=== PATIENT | female | born 1985 | race Caucasian/White ===

== ENCOUNTER 2020-06-06 18:42 | Emergency (ER) | payer OTHER ==
[~2020-06-06] VITALS: Ht 160 cm; Wt 77.1 kg
[2020-06-06] MEDS ORDERED: KETO10TA2 PO (21:27)
[2020-06-06] MEDS ORDERED: ORPHENADRINE C100 MG PO (21:27)
== END 2020-06-06 21:47 | disposition home or self-care (01) ==
LOC: ER 18:42
DX: M51.87 Other intervertebral disc disorders, lumbosacral region (principal); M54.5 Low back pain; B96.0 Mycoplasma pneumoniae [M. pneumoniae] as the cause of diseases classified elsewhere; Z03.818 Encounter for observation for suspected exposure to other biological agents ruled out

== ENCOUNTER 2020-11-04 10:40 | Emergency (ER) | payer OTHER ==
[~2020-11-04] VITALS: Ht 160 cm; Wt 77.1 kg
[~2020-11-04 10:40] MED LIST: KETO10TA2 PO; ORPHENADRINE C100 MG PO
== END 2020-11-04 13:41 | disposition home or self-care (01) ==
LOC: ER 10:40
DX: R21 Rash and other nonspecific skin eruption (principal)